=== PATIENT | female | born 1950 | race Caucasian/White ===

== ENCOUNTER 2017-02-26 12:34 | Emergency (ER) | payer OTHER ==
[~2017-02-26] VITALS: Ht 160 cm; Wt 65.9 kg
[2017-02-26 14:26] VITALS: BP 140/74
== END 2017-02-26 14:26 | disposition home or self-care (01) ==
LOC: ED 12:34
DX: K59.00 Constipation, unspecified (principal); R14.0 Abdominal distension (gaseous); F32.1 Major depressive disorder, single episode, moderate; K21.9 Gastro-esophageal reflux disease without esophagitis
CPT/HCPCS: Q0162